=== PATIENT | female | born 1985 | race Caucasian/White ===

== ENCOUNTER 2017-01-26 21:13 | Emergency (ER) | payer OTHER ==
[~2017-01-26] VITALS: Ht 162.6 cm; Wt 73.8 kg
[~2017-01-26 21:13] MED LIST: IBUP-11 PO; OXYC-302 PO; PREN1TAB69 PO
[2017-01-26 22:16] LABS: HCG UR LOT HCG7030192
[2017-01-26 22:24] LABS: HCG UR OBC PASS
[2017-01-27] MEDS ORDERED: ONDANSETRON ODT 4 MG ONE (00:13)
[2017-01-27] MEDS ORDERED: CEFTRIAXONE 1,000 MG ONE (00:13)
[2017-01-27] MEDS ORDERED: PHENAZOPYRIDINE 200 MG TABLET ONE (00:13)
[2017-01-27] MEDS ORDERED: PHENAZOPYRIDINE 200 MG TABLET PO ONE (00:30)
[2017-01-27] MEDS ORDERED: ONDANSETRON ODT 4 MG PO ONE (00:30)
[2017-01-27] MEDS ORDERED: CEFTRIAXONE 1,000 MG IM ONE (00:30)
[2017-01-27 00:54] VITALS: BP 103/65
== END 2017-01-27 00:56 | disposition home or self-care (01) ==
LOC: ED 21:59
DX: N30.91 Cystitis, unspecified with hematuria (principal); Z87.442 Personal history of urinary calculi; Z88.0 Allergy status to penicillin
CPT/HCPCS: 81001; 81025; 87086; 96372; 99284; J0696; Q0162

== ENCOUNTER 2017-08-19 11:18 | Emergency (ER) | payer OTHER ==
[~2017-08-19] VITALS: Ht 162.6 cm; Wt 71.4 kg
[~2017-08-19 11:18] MED LIST changes: +TRAM-47 PO
[2017-08-19 11:29] VITALS: BP 113/76
== END 2017-08-19 11:39 ==
LOC: ED 11:32
DX: O46.91 Antepartum hemorrhage, unspecified, first trimester (principal); Z3A.01 Less than 8 weeks gestation of pregnancy; Z53.21 Procedure and treatment not carried out due to patient leaving prior to being seen by health care provider